=== PATIENT | female | born 1990 | race African-American/Black ===

== ENCOUNTER 2017-04-22 14:38 | Emergency (ER) | payer OTHER ==
[~2017-04-22] VITALS: Ht 175.3 cm; Wt 59.0 kg
[~2017-04-22 14:38] MED LIST: ACID CONTROLLER20 MG PO; ALBUTEROL17 GM INH; MIGRAINE MED; OMEPRAZOLE40 MG PO; PRENATAL1 TA1 PO; TOPAMAX PO; ZOFRAN ODT4 MG PO; ZOFRAN PO
== END 2017-04-22 16:07 | disposition home or self-care (01) ==
LOC: SED 14:38
DX: O99.89 Other specified diseases and conditions complicating pregnancy, childbirth and the puerperium (principal); R10.31 Right lower quadrant pain; R10.32 Left lower quadrant pain; M54.5 Low back pain; F17.200 Nicotine dependence, unspecified, uncomplicated
CPT/HCPCS: 84703; 99284